=== PATIENT | female | born 1990 | race Caucasian/White ===

== ENCOUNTER 2020-09-11 11:51 | Emergency (ER) | payer OTHER, SELFPAY ==
--- NOTE | ~2020-09-11 | US_ITS ---
EXAMINATION: US OB <=14 wk fetus w TV DATE: 09/11/2020 14:24 INDICATION: Positive test. Vaginal bleeding. TECHNIQUE: Real-time transabdominal and transvaginal obstetric ultrasound. FINDINGS: No prior studies for comparison. The uterus measures 8.3 x 6.2 x 4.1 cm. No intrauterine gestational sac is identified. Small cyst of the endometrium are noted of doubtful clinical significance. Small amount of free fluid in the pelvis . Right ovary measures 2.3 x 1.6 x 1.5 cm. Left ovary measures 2.7 x 2.2 x 1.9 cm. There are follicul ar changes. IMPRESSION: 1. No evidence for intrauterine . Differential diagnosis includes very early intrauterine pr egnancy, failed and ectopic . Recommend follow-up with quantitative beta-hCG level s and ultrasound as clinically indicated. Reviewed, dictated and finalized at location A. IMPRESSION: 1. No evidence for intrauterine . Differential diagnosis includes very early intrauterine , failed and ectopic . Recommen d follow-up with quantitative beta-hCG levels and ultrasound as clinically torie cated.
[2020-09-11 11:58] VITALS: BP 115/60; PULSE 105; RESP 18; TEMP 36.8; O2SAT 99
[2020-09-11 12:21] LABS: Basophils Percent Auto 0.4 % (0.2-1.2); Eosinophils Absolute Auto 0.1 K/mm3 (0-0.3); Eosinophils Percent Auto 1.4 % (0-4.4); Hematocrit 42.9 % (37.0-47.0); Hemoglobin 14.2 g/dL (12.0-15.0); Immature Granulocyte Absolute 0.01 K/mm3 (0.00-0.031); Immature Granulocyte Percent A 0.2 % (0-0.5); Lymphocytes Absolute Auto 1.46 K/mm3 (0.9-3.2); Lymphocytes Percent Auto 25.8 % (18.3-44.2); Mean Corpuscular HGB Conc 33.1 g/dl (32-36); Mean Corpuscular Hemoglobin 29.9 pg (26-34); Mean Corpuscular Volume 90.3 fl (80-100); Monocytes Absolute Auto 0.6 K/mm3 (0.1-0.6); Monocytes Percent Auto 10.3 % (2.6-8.5); Neutrophils Absolute Auto 3.5 K/mm3 (1.3-6.7); Neutrophils Percent Auto 61.9 % (45.5-73.1); Platelet Count Result 239 k/mm3 (150-375); Red Blood Count 4.75 M/mm3 (4.2-5.4); Red Cell Distribution Width 12.4 % (11.5-14.5); White Blood Count 5.7 K/mm3 (4.5-10.0)
[2020-09-11 12:50] LABS: Beta HCG Quantitative 117.48 mIU/ML
--- NOTE | 2020-09-11 14:25 | ED.FEMALEGU ---
HPI - Female Genitourinary General Chief complaint: Vaginal Bleeding Stated complaint: vaginal bleeding, Time Seen by Provider: 09/11/20 13:00 Source: patient Mode of arrival: ambulatory Limitations: no limitations History of Present Illness HPI Narrative: This is a 30-year-old that had a positive test one week ago that presents to the emergency department for vaginal bleeding since this morning. Reports she noted some brown discharge today. Also reports she has had some intermittent pelvic cramping since she had her positive test. Reports she was on control and was not having any periods, so is unsure how far along she is. Reports she has an appointment to see her OB this week. Denies fever, nausea, vomiting, or dysuria. Related Data Home Medications Medication Instructions Recorded Confirmed No Home Medications 09/11/20 09/11/20 Allergies Allergy/AdvReac Type Severity Reaction Status Date / Time metronidazole [From Flagyl] AdvReac Swelling Verified 09/11/20 12:01 of Lip/Tongue/Throat Review of Systems Review of Systems: Narrative: CONSTITUTIONAL: Denies fever GASTROINTESTINAL: Reports pelvic pain. Denies nausea, vomiting GENITOURINARY: Denies dysuria or hematuria. All systems reviewed & are unremarkable except as noted in HPI and below PMFSH Past Medical History Medical History (Updated 09/11/20 @ 15:30 by Nazia Dasilva PA-C) No active medical problems Surgical History Surgical History (Updated 09/11/20 @ 14:27 by Nazia Dasilva PA-C) History of tonsillectomy Exam Narrative: Exam Narrative: GENERAL: Well-appearing, well-nourished, and in no acute distress. HEAD: Normocephalic, atraumatic. EYES: EOMI. CHEST: Clear to auscultation. No respiratory distress. No wheezes rales or rhonchi HEART: Regular rate and rhythm. No murmur heard. Normal peripheral pulses. ABDOMEN: Soft, nontender, nondistended, normal active bowel sounds. EXTREMITIES: Normal range of motion. No edema. SKIN: Warm, dry, no rash. NEURO: No focal deficits. Alert and oriented x3. PSYCH: Normal mood and affect PELVIC: Normal-appearing cervix, closed. Small amount of white/brown discharge in the vaginal wall Course Consultations Consultation #1: Spoke with Lisa nurse registered nurse. Patient will be given prescription for quantitative beta-hCG in 48 hours and will follow-up at her scheduled appointment on Saturday Date: 09/11/20 Time: 15:26 Vital Signs Vital signs: Vital Signs Temperature 98.2 F 09/11/20 11:58 Pulse Rate 105 H 09/11/20 11:58 Respiratory Rate 18 09/11/20 11:58 Blood Pressure 115/60 09/11/20 11:58 Pulse Oximetry 99 09/11/20 11:58 Temperature 98.2 F 09/11/20 11:58 Pulse Rate 105 H 09/11/20 11:58 Respiratory Rate 18 09/11/20 11:58 Blood Pressure 115/60 09/11/20 11:58 Pulse Oximetry 99 09/11/20 11:58 MDM - Female Genitourinary MDM Narrative Medical decision making narrative: Patient presents to the emergency department for abnormal vaginal discharge. Recently had a positive test. No active bleeding on pelvic exam. Cervix is closed. Patient's vitals are stable. Her hemoglobin is 14.2. Beta-hCG is 117.48. Obstetric ultrasound shows no evidence for any uterine . Differential includes earlier uterine , failed , or ectopic . Small amount of free fluid in the pelvis. No abnormal adnexal masses noted. Patient was updated on case findings. Spoke with Lisa patient's nurse registered nurse. Patient will be given prescription for quantitative beta-hCG in 48 hours and will follow-up at her scheduled appointment on Saturday. Patient is stable and felt appropriate for further outpatient evaluation. She was given warnings to return to the ER Lab Data Attestation: I reviewed the patient's lab results. Result diagrams: 09/11/20 12:03 Labs: Lab Results 09/11/20 09/11/2009/01
[2020-09-11 15:34] VITALS: BP 112/78; PULSE 83; RESP 18; O2SAT 100
== END 2020-09-11 15:35 | disposition home or self-care (01) ==
PROVIDERS: Emergency Provider Family Medicine; PCP Family Medicine
DX: O20.0 Threatened abortion (principal); Z3A.01 Less than 8 weeks gestation of pregnancy
CPT/HCPCS: 36415; 76801; 76817; 81025; 84702; 85025; 85461; 99284

== ENCOUNTER 2020-09-13 11:39 | Outpatient (CLI) | payer OTHER, SELFPAY ==
[2020-09-13 12:53] LABS: Beta HCG Quantitative 91.39 mIU/ML
== END 2020-09-13 11:40 | disposition home or self-care (01) ==
LOC: ANHLAB 11:41
PROVIDERS: PCP Family Medicine; Visit Provider Physician Assistant
DX: N89.8 Other specified noninflammatory disorders of vagina (principal)
CPT/HCPCS: 36415; 84702

== ENCOUNTER 2021-06-20 08:52 | Outpatient (CLI) | payer OTHER, SELFPAY ==
--- NOTE | ~2021-06-20 | US_ITS ---
US breast LT limited INDICATION: Palpable left breast lump TECHNIQUE: Dedicated Limited left breast ultrasound COMPARISON: No prior studies for comparison. FINDINGS: The left breast is composed of normal heterogeneous echotexture without focal solid or cyst ic mass. IMPRESSION: 1: Normal left breast ultrasound. Recommend correlation with diagnostic bilateral mammogram. BI-RADS CATEGORY 0 - INCOMPLETE STUDY, NEED ADDITIONAL IMAGING EVALUATION. Reviewed, dictated and finalized at location A. IMPRESSION: 1: Normal left breast ultrasound. Recommend correlation with diagnostic bilater al mammogram. BI-RADS CATEGORY 0 - INCOMPLETE STUDY, NEED ADDITIONAL IMAGING EVALUATION.
== END 2021-06-20 08:53 | disposition home or self-care (01) ==
LOC: CHSIMG 08:54
PROVIDERS: Visit Provider Nurse Practitioner Women's Health
DX: N64.59 Other signs and symptoms in breast (principal)
CPT/HCPCS: 76642

== ENCOUNTER 2021-07-03 10:12 | Outpatient (CLI) | payer OTHER, SELFPAY ==
--- NOTE | ~2021-07-03 | MM_ITS ---
EXAMINATION: MM diagnostic carmen BI w selam HISTORY: Palpable left breast abnormality TECHNIQUE: Additional 3-D tomosynthesis images of the breasts were performed and synthetic 2-D images were generated. CAD analysis was submitted and interpreted. COMPARISON: Ultrasound dated 06/20/2021 BREAST PARENCHYMAL COMPOSITION: The breasts are heterogenously dense, which may obscure small masses. FINDINGS: There are no suspicious masses, calcifications or architectural distortion in either breast to suggest malignancy. IMPRESSION: 1. No mammographic evidence for malignancy in either breast. BI-RADS CATEGORY 1 - NEGATIVE Reviewed, dictated and finalized at location A.
== END 2021-07-03 10:13 | disposition home or self-care (01) ==
LOC: CHSIMG 10:13
PROVIDERS: Visit Provider Nurse Practitioner Women's Health
DX: N63.20 Unspecified lump in the left breast, unspecified quadrant (principal); N64.59 Other signs and symptoms in breast
CPT/HCPCS: 77062; 77066; G0279

== ENCOUNTER 2021-08-27 13:56 | Emergency (ER) | payer SELFPAY ==
[2021-08-27 13:58] VITALS: BP 112/61; PULSE 90; RESP 16; TEMP 37; O2SAT 100
[2021-08-27 14:12] LABS: Basophils Percent Auto 0.3 % (0.2-1.2); Eosinophils Absolute Auto 0.1 K/mm3 (0-0.3); Eosinophils Percent Auto 0.9 % (0-4.4); Hematocrit 40.3 % (37.0-47.0); Hemoglobin 13.6 g/dL (12.0-15.0); Immature Granulocyte Absolute 0.02 K/mm3 (0.00-0.031); Immature Granulocyte Percent A 0.3 % (0-0.5); Lymphocytes Absolute Auto 1.71 K/mm3 (0.9-3.2); Lymphocytes Percent Auto 22.2 % (18.3-44.2); Mean Corpuscular HGB Conc 33.7 g/dl (32-36); Mean Corpuscular Hemoglobin 30.6 pg (26-34); Mean Corpuscular Volume 90.8 fl (80-100); Mean Platelet Volume 10.5 fl (7.4-10.4); Monocytes Absolute Auto 0.7 K/mm3 (0.1-0.6); Neutrophils Absolute Auto 5.2 K/mm3 (1.3-6.7); Neutrophils Percent Auto 67.3 % (45.5-73.1); Platelet Count Result 236 k/mm3 (150-375); Red Blood Count 4.44 M/mm3 (4.2-5.4); Red Cell Distribution Width 12.4 % (11.5-14.5); White Blood Count 7.7 K/mm3 (4.5-10.0)
--- NOTE | 2021-08-27 18:02 | PC.NURSE ---
Patient's name called in ED waiting room to be taken to room, no response.
--- NOTE | 2021-08-27 19:05 | PC.NURSE ---
Patient's name called again in waiting room, no answer.
== END 2021-08-27 19:05 | disposition left against medical advice (07) ==
LOC: ANHED 19:16
PROVIDERS: Emergency Provider Emergency Medicine
DX: N93.9 Abnormal uterine and vaginal bleeding, unspecified (principal); Z53.21 Procedure and treatment not carried out due to patient leaving prior to being seen by health care provider
CPT/HCPCS: 36415; 84702; 85025; 99199

== ENCOUNTER 2022-03-12 10:19 | Observation (INO) | payer OTHER, MEDICAID, SELFPAY ==
--- NOTE | ~2022-03-12 | XR_ITS ---
EXAMINATION:[id number] DATE: 03/12/2022 11:39 INDICATION: Neck pain TECHNIQUE: AP, lateral, and odontoid views of the cervical spine are provided. COMPARISON: None FINDINGS: Alignment is normal. There is reversal of normal cervical lordosis. The odontoid is intact. No fracture is identified. Vertebral body heights and disk spaces are normal. Prevertebral soft tiss ues are normal. IMPRESSION: 1. No acute osseous abnormality. However, if there is high clinical suspicion for cervical spine frac ture, CT is recommended. Reviewed, dictated and finalized at location A. IMPRESSION: 1. No acute osseous abnormality. However, if there is high clinical suspicion f or cervical spine fracture, CT is recommended.
[2022-03-12 10:31] VITALS: BP 116/75; PULSE 116; RESP 16; TEMP 37.1; O2SAT 98
--- NOTE | 2022-03-12 10:40 | PC.NURSE ---
OB at bedside to monitor baby.
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
[2022-03-12] MEDS: SODIUM CHLORIDE 0.9% IV 1,000 ML 999 ML IV CONT (10:55)
[2022-03-12 10:57] LABS: Basophils Percent Auto 0.3 % (0.2-1.2); Eosinophils Absolute Auto 0.1 K/mm3 (0-0.3); Eosinophils Percent Auto 0.7 % (0-4.4); Hematocrit 35.6 % (37.0-47.0); Hemoglobin 11.5 g/dL (12.0-15.0); Immature Granulocyte Absolute 0.24 K/mm3 (0.00-0.031); Immature Granulocyte Percent A 2.3 % (0-0.5); Lymphocytes Absolute Auto 1.51 K/mm3 (0.9-3.2); Lymphocytes Percent Auto 14.8 % (18.3-44.2); Mean Corpuscular HGB Conc 32.3 g/dl (32-36); Mean Corpuscular Hemoglobin 30.3 pg (26-34); Mean Corpuscular Volume 93.7 fl (80-100); Mean Platelet Volume 10.6 fl (7.4-10.4); Monocytes Absolute Auto 1.2 K/mm3 (0.1-0.6); Monocytes Percent Auto 11.2 % (2.6-8.5); Neutrophils Absolute Auto 7.2 K/mm3 (1.3-6.7); Neutrophils Percent Auto 70.7 % (45.5-73.1); Platelet Count Result 175 k/mm3 (150-375); Red Cell Distribution Width 15.4 % (11.5-14.5); White Blood Count 10.2 K/mm3 (4.5-10.0)
[2022-03-12 11:06] LABS: Alanine Aminotransferase 20 U/L (4-35); Albumin Level 3.6 g/dL (3.5-5.1); Alkaline Phosphatase 124 U/L (38-126); Anion Gap 7 mmol/L (8-16); Aspartate Amino Transferase 35 U/L (14-36); Bilirubin,Total 0.2 mg/dL (0.2-1.3); Blood Urea Nitrogen 4 mg/dL (7-17); Calcium 9.3 mg/dL (8.4-10.2); Carbon Dioxide 19 mmol/L (22-30); Chloride 106 mmol/L (98-107); Estimated CRCL calculation 188 ml/min; Estimated Glomerular Filt Rate > 60; Glucose 105 mg/dL (65-110); Sodium 132 mmol/L (137-145)
[2022-03-12 11:07] LABS: INR 1.1; Prothrombin Time 13.9 Seconds (11.1-14.7)
[2022-03-12 11:09] LABS: Partial Thromboplastin Time 27.3 SECONDS (22.3-36.8)
[2022-03-12 11:36] LABS: Bilirubin Urine Negative (Negative); Blood Urine Negative (Negative); Color Urine Yellow (Yellow); Glucose Urine UA Negative (Negative); Ketones Urine Negative (Negative); Leukocyte Esterase Ur 1+ LEU/UL (Negative); Nitrate Urine Negative (Negative); Protein Urine Negative (Negative); Urobilinogen Urine 0.2 mg/dL (<2.0); pH Urine 7.5 (5.0-9.0)
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
[2022-03-12 11:54] LABS: Bacteria Urine Trace /hpf; Mucus Urine Rare /lpf; RBC Urine 0-2 /hpf (0-2); Squamous Epithelial Cell Urine Moderate /hpf (Few)
[2022-03-12 11:56] VITALS: BP 105/70; PULSE 97; RESP 12; O2SAT 98
--- NOTE | 2022-03-12 11:57 | PC.NURSE ---
C Collar removed by Nazia Dasilva PA-C.
[2022-03-12 11:59] LABS: Add Urine Microscopic? YES; Appearance Urine Sl Cloudy (Clear)
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
[2022-03-12 13:25] VITALS: BP 104/66; PULSE 96; PULSE 97; O2SAT 100
[2022-03-12 13:30] VITALS: BMI 24.5
--- NOTE | 2022-03-12 13:30 | OBADM ---
This patient, Brianna Cruz, admitted to the OB room OB Post [facility] for observation. Patient/family oriented to hospital policies and general routines including ID bracelet, bed and alarms, visiting hours, pain management, procedures, bathroom and other care routines, personal items, smoking policy, room service/diet, and visiting hours. Patient/Family are encouraged to report perceived risks to care and to ask questions if they do not understand what they are told or what they should do.
--- NOTE | 2022-03-12 13:39 | PC.NURSE ---
Dr Mary here to see patient and discuss plan of care.
--- NOTE | 2022-03-12 19:05 | PC.NURSE ---
Called Dr. Mary with pt status. Pt states that she would like to go home. Dr. Mary states that pt must leave AMA if she leaves.
[2022-03-12 19:54] LABS: Hematocrit 34.1 % (37.0-47.0); Hemoglobin 11.1 g/dL (12.0-15.0); Mean Corpuscular HGB Conc 32.6 g/dl (32-36); Mean Corpuscular Hemoglobin 30.9 pg (26-34); Mean Platelet Volume 10.9 fl (7.4-10.4); Platelet Count Result 167 k/mm3 (150-375); Red Blood Count 3.59 M/mm3 (4.2-5.4); Red Cell Distribution Width 15.5 % (11.5-14.5); White Blood Count 9.5 K/mm3 (4.5-10.0)
--- NOTE | 2022-03-12 21:30 | PC.NURSE ---
Called to pt's room. Pt states that she would like to leave AMA. Discussed risks with pt. Pt still would like to leave.
[2022-03-12 21:32] VITALS: BP 95/51; PULSE 97
--- NOTE | 2022-04-02 09:42 | PM.OBTRLD ---
OB - Triage/Final Diagnosis Visit Information Comments/Additional reasons for admission: Notified by RN that patient signed out AMA prior to completing recommended evaluation. Evaluation Laboratory results: Laboratory Tests 03/12/22 03/12/22 03/12/22 10:50 10:50 10:50 WBC 10.2 H RBC 3.80 L Hgb 11.5 L Hct 35.6 L MCV 93.7 MCH 30.3 MCHC 32.3 RDW 15.4 H Plt Count 175 MPV 10.6 H Immature Gran % (Auto) 2.3 H Neut % (Auto) 70.7 Lymph % (Auto) 14.8 L Dent % (Auto) 11.2 H Eos % (Auto) 0.7 Baso % (Auto) 0.3 Lymph # (Auto) 1.51 Dent # (Auto) 1.2 H Eos # (Auto) 0.1 Baso # (Auto) 0.0 Abs Immat Gran (auto) 0.24 H Absolute Neuts (auto) 7.2 H Absolute Nucleated RBC 0.0 Nucleated RBC % 0.0 PT 13.9 INR 1.1 APTT 27.3 Sodium 132 L Potassium 4.0 Chloride 106 Carbon Dioxide 19 L Anion Gap 7 L BUN 4 L Creatinine 0.40 L Estim Creat Clear Calc 188 Estimated GFR > 60 Glucose 105 Calcium 9.3 Total Bilirubin 0.2 AST 35 ALT 20 Alkaline Phosphatase 124 Total Protein 7.0 Albumin 3.6 Urine Color Urine Appearance Urine pH Ur Specific [place] Urine Protein Urine Glucose (UA) Urine Ketones Ur Blood (Man) Urine Nitrate Urine Bilirubin Urine Urobilinogen Leukocyte Esterase Rfl Urine RBC Urine WBC Ur Squamous Epith Cells Urine Bacteria Urine Mucus Blood Type Antibody Screen Screen Baby's Blood Type Baby's SOCRATES KB Hemoglobin Doses of RhIg Required 03/12/22 03/12/22 03/12/22 10:50 11:20 19:45 WBC RBC Hgb Hct MCV MCH MCHC RDW Plt Count MPV Immature Gran % (Auto) Neut % (Auto) Lymph % (Auto) Dent % (Auto) Eos % (Auto) Baso % (Auto) Lymph # (Auto) Dent # (Auto) Eos # (Auto) Baso # (Auto) Abs Immat Gran (auto) Absolute Neuts (auto) Absolute Nucleated RBC Nucleated RBC % PT INR APTT Sodium Potassium Chloride Carbon Dioxide Anion Gap BUN Creatinine Estim Creat Clear Calc Estimated GFR Glucose Calcium Total Bilirubin AST ALT Alkaline Phosphatase Total Protein Albumin Urine Color Yellow Urine Appearance Sl cloudy Urine pH 7.5 Ur Specific [place] 1.020 Urine Protein Negative Urine Glucose (UA) Negative Urine Ketones Negative Ur Blood (Man) Negative Urine Nitrate Negative Urine Bilirubin Negative Urine Urobilinogen 0.2 Leukocyte Esterase Rfl 1+ H Urine RBC 0-2 Urine WBC 4-6 H Ur Squamous Epith Cells Moderate H Urine Bacteria Trace Urine Mucus Rare Blood Type O Positive Antibody Screen Negative Screen Not Reportable Baby's Blood Type Not Reportable Baby's SOCRATES Not Reportable KB Hemoglobin Negative Doses of RhIg Required 0 03/12/22 19:45 WBC 9.5 RBC 3.59 L Hgb 11.1 L Hct 34.1 L MCV 95.0 MCH 30.9 MCHC 32.6 RDW 15.5 H Plt Count 167 MPV 10.9 H Immature Gran % (Auto) Neut % (Auto) Lymph % (Auto) Dent % (Auto) Eos % (Auto) Baso % (Auto) Lymph # (Auto) Dent # (Auto) Eos # (Auto) Baso # (Auto) Abs Immat Gran (auto) Absolute Neuts (auto) Absolute Nucleated RBC Nucleated RBC % PT INR APTT Sodium Potassium Chloride Carbon Dioxide Anion Gap BUN Creatinine Estim Creat Clear Calc Estimated GFR Glucose Calcium Total Bilirubin AST ALT Alkaline Phosphatase Total Protein Albumin Urine Color Urine Appearance Urine pH Ur Specific [place] Urine Protein Urine Glucose (UA) Urine Ketones Ur Blood (Man) Urine Nitrate Urine Bilirubin Urine Urobilinogen Leukocyte Esterase Rfl Urine RBC Urine WBC Ur Squamous Epith Cells Urine Bacteria Urine Mucus Blood Type Antibody Screen Screen Baby
== END 2022-03-12 21:40 | disposition left against medical advice (07) ==
LOC: ANHED 12:46 → ANHOBPP 13:13
PROVIDERS: Physician Assistant; Admitting Provider Student in an Organized Health Care Education/Training Program; Emergency Provider Emergency Medicine; Visit Provider Student in an Organized Health Care Education/Training Program
DX: O26.893 Other specified pregnancy related conditions, third trimester (principal); S16.1XXA Strain of muscle, fascia and tendon at neck level, initial encounter; V89.2XXA Person injured in unspecified motor-vehicle accident, traffic, initial encounter; Z3A.34 34 weeks gestation of pregnancy
CPT/HCPCS: 36415; 72040; 80053; 81001; 85025; 85027; 85460; 85461; 85610; 85730; 96360; 99285; G0378; G0379; J7030